=== PATIENT | male | born 1960 | race Caucasian/White ===

== ENCOUNTER 2016-12-18 07:04 | Day surgery (SDC) | payer OTHER ==
[2016-12-17 16:45] VITALS: BMI 28.3
[2016-12-18 07:52] LABS: INR 1.02 (0.82-1.09); PROTHROMBIN TIME (PATIENT) 11.2 SEC (9.98-11.88)
[2016-12-18 13:21] VITALS: TEMP 98
[2016-12-18 14:24] VITALS: BP 117/60; PULSE 86
--- NOTE | 2016-12-25 11:20 | PATH ---
Surgical Pathology Report Patient Name: LADAN MURPHY [facility]. Rec. #: [id number] /Age/Gender: 1960 (Age: 56) / M Account: [id number] Location: RADIOLOGY Taken: 12/18/2016 Received: 12/18/2016 Reported: 12/23/2016 Physicians: Yolanda Jose Chi Specimen(s) Received ABDOMINAL MASS BIOPSY Clinical History 56-year-old male with history of colon cancer now with mesenteric mass Final Diagnosis ABDOMINAL (MESENTERIC) MASS, CT GUIDED CORE BIOPSY: CONSISTENT WITH INVOLVEMENT BY METASTATIC ADENOCARCINOMA (SEE COMMENT). Comment: Prior history of right colon cancer is noted. The sections show scant fragments of soft tissue involved by metastatic adenocarcinoma along with small aggregates of crushed lymphoid cells. Morphologically, this adenocarcinoma is compatible with GI origin. The material was insufficient for the attempted immunohistochemical stains to confirm the origin of the tumor by IHC. Clinical and imaging correlations are suggested. The case was discussed with Dr. Baird on 12/20/16 and was faxed to Dr. Chua's office on 12/23/16. Electronically Signed Gene Kay M.D. Gross Description Received in formalin labeled "abdominal mass biopsy" are 4 chung, cylindrical portions of soft tissue ranging from 0.2-0.7 cm in length and averaging 0.1 cm in diameter. The specimens are submitted in toto in one cassette. /12/18/201612/18/2016
== END 2016-12-18 14:30 | disposition home or self-care (01) ==
LOC: JRADIR 07:04
PROVIDERS: ATTEND Surgery
PROC: BW20YZZ Computerized Tomography (CT Scan) of Abdomen using Other Contrast (ICD-10-PCS; principal; 2016-12-18)
PROC: 0WBH3ZX Excision of Retroperitoneum, Percutaneous Approach, Diagnostic (ICD-10-PCS; 2016-12-18)
DX: D48.3 Neoplasm of uncertain behavior of retroperitoneum (principal)
CPT/HCPCS: 36415; 49180; 77012-TC; 85610; 88305-TC